=== PATIENT | female | born 1990 | race Hispanic/Latino ===

== ENCOUNTER 2018-10-31 12:35 | Inpatient (IN) | payer MEDICAID, OTHER ==
[~2018-10-31] VITALS: Ht 162.6 cm; Wt 77.1 kg
[~2018-10-31 12:35] MED LIST: FERR325T22 PO; MO6B PO; PREN1TAB89 PO
[2018-10-31] MEDS ORDERED: OXYTOCIN-LR 20 UNITS/1000 ML 1,000 ML IV SCH (13:30)
[2018-10-31] MEDS ORDERED: AMPICILLIN 1GM+NS 50ML 50 ML IV SCH (13:30)
[2018-10-31] MEDS ORDERED: LACTATED RINGERS 1000ML 1,000 ML IV PRN (13:30)
[2018-10-31] MEDS ORDERED: AMPICILLIN 2GM+NS 100ML 100 ML IV SCH (13:30)
[2018-10-31 13:40] LABS: HEMATOCRIT 36.1 % (36-48); MEAN CORPUSCULAR HEMOGLOBIN 30.1 pg (27.0-33.0); MEAN CORPUSCULAR HGB CONC 33.6 g/dL (32.0-36.0); MEAN CORPUSCULAR VOLUME 89.4 fL (79-99); PLATELET COUNT (AUTO) 225 K/uL (130-400); RED BLOOD CELL COUNT(AUTO) 4.04 MIL/uL (4.00-5.50); RED CELL DISTRIBUTION WIDTH 14.4 % (11.0-15.5); WHITE BLOOD COUNT (AUTO) 14.9 K/uL (4.8-10.8)
[2018-10-31] MEDS ORDERED: AMPICILLIN 2GM+NS 100ML 100 ML IV ONE (13:43)
[2018-10-31] MEDS ORDERED: LACTATED RINGERS 1000ML 1,000 ML IV ONE (13:44)
[2018-10-31] MEDS ORDERED: MEPERIDINE-PF 50 MG/ML SYG ONE (13:44)
[2018-10-31] MEDS ORDERED: MEPERIDINE-PF 50 MG/ML SYG IVP ONE (13:45)
[2018-10-31] MEDS ORDERED: PROMETHAZINE HCL 25 MG/ML 1ML AMPULE IM SCH (13:45)
[2018-10-31 14:16] LABS: RAPID PLASMA REAGIN NONREACTIVE (NONREACTIVE)
[2018-10-31] MEDS ORDERED: WITCH HAZEL 1 PAD TP PRN (17:45)
[2018-10-31] MEDS ORDERED: LANOLIN 30GM OINTMENT TP PRN (17:45)
[2018-10-31] MEDS ORDERED: MEASLES/MUMPS/RUBELLA VACCINE, LIVE 0.5 ML/VIAL SQ PRN (17:45)
[2018-10-31] MEDS ORDERED: DIPH,PERTUSS(ACELL),TET VAC/PF 0.5 ML VIAL IM PRN (17:45)
[2018-10-31] MEDS ORDERED: ACETAMINOPHEN 325 MG TAB PO PRN (17:45)
[2018-10-31] MEDS ORDERED: BENZOCAINE/LANOLIN/ALOE VERA 60 ML AEROSOL TP PRN (17:45)
[2018-10-31] MEDS ORDERED: ACETAMINOPHEN 325 MG TAB ONE (17:56)
[2018-10-31 19:25] VITALS: BP 106/55
[2018-10-31 19:55] VITALS: BP 123/60
--- NOTE | 2018-10-31 20:04 | NUR ---
MEDICATIONS Motrin 600mg Po administered for reported abdominal cramping. Colace 100mg PO administered as ordered. medication use/indications and possible se explained to patient. patient verbalizes understanding agrees to medication and meds administered. Addendum: 10/31/18 at 2021 by JL GARDINER RN RN Amended: Links added.
[2018-10-31] MEDS: IBUPROFEN 600 MG TABLET PO PRN (20:05)
[2018-10-31] MEDS: DOCUSATE SODIUM 100 MG CAP PO SCH (20:05)
--- NOTE | 2018-10-31 20:55 | NUR ---
MOVE TO ROOM 111 Patient and pt belongings transferred via wheelchair to room 111 for continued care. also transferred via crib to room 111 with patient.
[2018-10-31 23:22] VITALS: BP 100/54
--- NOTE | 2018-10-31 23:30 | NUR ---
MEDICATIONS Tylenol 650 mg PO administered for reported abd pain and perineal soreness with rating of 2 of 10 on pain scale. Lanolin ointment provided and instructed patient on proper use. Patient verbalizes understanding and able to teach back. Addendum: 11/01/18 at 0004 by JL GARDINER RN RN Amended: Links added.
--- NOTE | 2018-10-31 23:40 | NUR ---
DIET Patient requesting something to eat. Patient provided with sandwich tray and saltine crackers.
--- NOTE | 2018-10-31 23:59 | NUR ---
MEDICATIONS Tylenol 650 mg Po administered for reported abd pain and perineal discomfort. Lanolin ointment also provided to patient and instructed patient on proper use. Patient verbalizes understanding and able to teach teach back.
--- NOTE | 2018-11-01 01:50 | NUR ---
PIV 2nd IV liter of LR + 20 units Pitocin/L completed. PIV saline locked, site care done and redressed. Patient tolerated well. site free from redness, edema or drainage. Patient left to rest and Nursing infant at this time. Pt requesting Motrin at 0200 for abd cramping.
[2018-11-01] MEDS: IBUPROFEN 600 MG TABLET PO PRN ×3 (01:58→16:14)
[2018-11-01 03:57] VITALS: BP 100/63
[2018-11-01 05:31] LABS: HEMATOCRIT 32.5 % (36-48); MEAN CORPUSCULAR HEMOGLOBIN 29.4 pg (27.0-33.0); MEAN CORPUSCULAR VOLUME 89.1 fL (79-99); PLATELET COUNT (AUTO) 200 K/uL (130-400); RED BLOOD CELL COUNT(AUTO) 3.64 MIL/uL (4.00-5.50); RED CELL DISTRIBUTION WIDTH 14.3 % (11.0-15.5); WHITE BLOOD COUNT (AUTO) 11.7 K/uL (4.8-10.8)
[2018-11-01 07:23] VITALS: BP 93/57
[2018-11-01] MEDS: DOCUSATE SODIUM 100 MG CAP PO SCH (08:26)
[2018-11-01 11:34] VITALS: BP 99/56
[2018-11-01 16:16] VITALS: BP 100/61
--- NOTE | 2018-11-01 17:25 | NUR ---
DISCHARGE PT STABLE, NO PAIN, NO COMPLAINTS; PT LEFT UNIT, VIA WHEELCHAIR, WITH BABY IN ARMS, ACCOMPANIED BY [facility]MA[facility] MENDES AND FAMILY MEMBERS CARRYING ALL PERSONAL BELONGINGS AND INSTRUCTIONS; PT LEFT FACILITY IN PERSONAL VEHICLE
[2018-11-02 04:10] LABS: HEPATITIS Bs ANTIGEN SCREEN P Negative (Negative)
== END 2018-11-01 17:25 | disposition home or self-care (01) | DRG 807 ==
LOC: EDH 12:35 → LDH 12:51 → OBSVTOIN 12:51 → WSH 21:04
PROVIDERS: ADMIT Obstetrics & Gynecology; ATTEND Obstetrics & Gynecology
PROC: 10E0XZZ Delivery of Products of Conception, External Approach (ICD-10-PCS; principal; 2018-10-31)
DX: O99.824 Streptococcus B carrier state complicating childbirth (principal); Z37.0 Single live birth; O34.219 Maternal care for unspecified type scar from previous cesarean delivery; Z3A.39 39 weeks gestation of pregnancy
CPT/HCPCS: 36415; 85027; 86592; 86701; 86850; 86900; 86901; 87340; 87390; A4351; G0378; J0290; J2175; J2590; J7120